=== PATIENT | female | born 1990 | race Caucasian/White ===

== ENCOUNTER 2020-08-18 14:48 | Emergency (ER) | payer OTHER ==
[~2020-08-18] VITALS: Ht 154.9 cm; Wt 58.1 kg
[2020-08-18] MEDS ORDERED: AIRBORNE EFFER1 EACH PO (18:42)
[2020-08-18] MEDS ORDERED: BUTALBIT-ACETA1 EACH PO (18:42)
== END 2020-08-18 20:15 | disposition home or self-care (01) ==
LOC: ER 14:48
DX: B34.9 Viral infection, unspecified (principal); R05 Cough; Z03.818 Encounter for observation for suspected exposure to other biological agents ruled out